=== PATIENT | male | born 1985 | race Caucasian/White ===

== ENCOUNTER 2021-09-11 11:22 | Emergency (ER) | payer MEDICARE, OTHER ==
[~2021-09-11] VITALS: Ht 190.5 cm; Wt 149.1 kg
[2021-09-11] MEDS ORDERED: HYDR-4400 PO (11:54)
[2021-09-11] MEDS ORDERED: ALPR-705 PO (11:54)
[2021-09-11] MEDS ORDERED: DICL100G51 TP (11:54)
[2021-09-11] MEDS ORDERED: ASCO500 PO (11:54)
[2021-09-11] MEDS ORDERED: ATEN-73 PO (11:54)
[2021-09-11] MEDS ORDERED: ENOX40SY14 SQ (11:54)
[2021-09-11] MEDS ORDERED: ESCI20TA87 PO (11:54)
[2021-09-11] MEDS ORDERED: FERR325T27 PO (11:54)
[2021-09-11] MEDS ORDERED: BACL10TA PO (11:54)
[2021-09-11] MEDS ORDERED: FURO20 PO (11:54)
[2021-09-11 12:59] LABS: BASOPHILS % (AUTO) 0.4 % (0.0-2.0); EOSINOPHILS % (AUTO) 0 % (1.0-6.0); HEMATOCRIT 33.2 % (41-53); HEMOGLOBIN 10.2 g/dL (13.5-17.5); LYMPHOCYTES # (AUTO) 0.8 K/uL (1.0-4.8); LYMPHOCYTES % (AUTO) 3.4 % (22.0-44.0); MEAN CORPUSCULAR HEMOGLOBIN 22.1 pg (26.0-34.0); MEAN CORPUSCULAR HGB CONC 30.6 G/dL (31.0-37.0); MEAN CORPUSCULAR VOLUME 72 fL (80-100); MONOCYTES % (AUTO) 8.5 % (2.0-9.0); NEUTROPHILS # (AUTO) 20.5 K/uL (1.8-7.7); PLATELET COUNT (AUTO) 550 K/uL (150-450); RED BLOOD CELL COUNT(AUTO) 4.61 MIL/uL (4.50-5.90); RED CELL DISTRIBUTION WIDTH 19.9 % (11.5-14.5)
[2021-09-11 13:03] LABS: NEUTROPHILS % (AUTO) 87.7 % (40.0-70.0)
[2021-09-11 13:08] LABS: ANION GAP 8 mmol/L (8-16); CALCIUM, TOTAL 9.4 mg/dL (8.8-10.5); CARBON DIOXIDE 34 mmol/L (22-29); CHLORIDE 96 mmol/L (98-107); CREATININE 0.64 mg/dL (0.60-1.30); GLOMERULAR FILTR. RATE CALC > 60 mL/min (>60); GLUCOSE,RANDOM 95 mg/dL (70-110); POTASSIUM 4.4 mmol/L (3.5-5.1); SODIUM SERUM 138 mmol/L (136-145); UREA NITROGEN, BLOOD 14 mg/dL (7-18)
[2021-09-11 13:13] LABS: ALKALINE PHOSPHATASE 345 U/L (46-116); BILIRUBIN,TOTAL 0.4 mg/dL (0.1-1.0)
[2021-09-11 13:14] LABS: ALANINE AMINOTRANSFERASE 45 U/L (12-78); ALBUMIN 2.2 g/dL (3.4-5.0); ASPARTATE AMINOTRANSFERASE 25 U/L (15-37); TOTAL PROTEIN, SERUM 7.4 g/dL (6.4-8.2)
[2021-09-11] MEDS ORDERED: CefTRIAXone 1 GM/DEXTROSE 50 ML IV ONE (15:45)
[2021-09-11] MEDS ORDERED: AZITHROMYCIN 500 MG/NS 250 ML IV ONE (15:45)
[2021-09-11] MEDS ORDERED: HYDROmorphone 2 MG/ML VIAL IVP ONE (16:45)
[2021-09-11 17:49] LABS: COVID AG,FIA SOURCE NASOPHARYNGEAL
[2021-09-11 20:03] VITALS: BP 137/73
[2021-09-11] MEDS ORDERED: ONDANSETRON HCL 4 MG/2 ML VIAL IVP ONE (21:30)
== END 2021-09-12 00:20 | disposition short-term general hospital (02) ==
LOC: EMS 11:22
DX: J18.9 Pneumonia, unspecified organism (principal); M84.48XA Pathological fracture, other site, initial encounter for fracture; R53.1 Weakness; F41.9 Anxiety disorder, unspecified; G40.909 Epilepsy, unspecified, not intractable, without status epilepticus; G47.30 Sleep apnea, unspecified; Z87.09 Personal history of other diseases of the respiratory system; Z86.69 Personal history of other diseases of the nervous system and sense organs; Z87.39 Personal history of other diseases of the musculoskeletal system and connective tissue; Z86.14 Personal history of Methicillin resistant Staphylococcus aureus infection; Z20.822 Contact with and (suspected) exposure to COVID-19
CPT/HCPCS: 36415; 71250; 72128; 72131; 80053; 85025; 85379; 87040; 87077; 87205; 87426; 96365; 96367; 96375; 99291; J0456; J0696; J1170; J2405